=== PATIENT | female | born 1990 | race Caucasian/White ===

== ENCOUNTER 2017-04-29 10:09 | Outpatient (CLI) | payer OTHER | END 2017-04-29 11:50 | disposition home or self-care (01) | LOC: OBT 10:09 → L-D 10:09 → OBT 11:50 | DX: O48.0 Post-term pregnancy (principal); Z3A.40 40 weeks gestation of pregnancy | CPT/HCPCS: 76818 ==

== ENCOUNTER 2017-05-01 11:27 | Inpatient (IN) | payer OTHER ==
[2017-05-01] MEDS: LACTATED RINGER'S 1,000 ML IV ×2 (13:12→17:54)
[2017-05-01 13:23] LABS: ADD MAN DIFF? NO
[2017-05-01 13:25] LABS: BASOPHIL # 0.1 10^3/ul (0.0-0.1); BASOPHILS % 0.6 % (0.0-2.0); EOSINOPHILS % 0.2 % (0.0-7.0); HEMATOCRIT 38.5 % (37.0-47.0); HEMOGLOBIN 12.8 g/dl (12.0-16.0); LYMPHOCYTES # 2.5 10^3/ul (0.8-2.9); LYMPHOCYTES % 28.4 % (15.0-51.0); MEAN CORPUSCULAR HEMOGLOBIN 28.2 pg (29.0-33.0); MEAN CORPUSCULAR HGB CONC 33.2 g/dl (32.0-37.0); MEAN CORPUSCULAR VOLUME 84.8 fl (82.0-101.0); MEAN PLATELET VOLUME 12.8 fl (7.4-10.4); MONOCYTE # 0.8 10^3/ul (0.3-0.9); MONOCYTES % 9.1 % (0.0-11.0); NEUTROPHIL # 5.4 10^3/ul (1.6-7.5); NEUTROPHILS % 61.4 % (39.0-77.0); PLATELET COUNT 176 10^3/UL (140-415); RED BLOOD COUNT 4.54 10^6/ul (4.20-5.40); RED CELL DISTRIBUTION WIDTH 14.3 % (11.5-14.5)
[2017-05-01 13:25] LABS: WHITE BLOOD COUNT 8.8 10^3/ul (4.8-10.8)
[2017-05-01] MEDS: DINOPROSTONE 10 MG VAG SUPP VAG (13:25)
[2017-05-01 13:29] LABS: INR 0.87; PROTIME 11.9 Sec (11.9-14.9); PT RATIO 0.9
[2017-05-01 13:30] LABS: PARTIAL THROMBOPLASTIN TIME 26.4 Sec (25.0-35.0)
[2017-05-01] MEDS ORDERED: MISOPROSTOL 200 MCG TAB PR (13:30)
[2017-05-01] MEDS ORDERED: IBUPROFEN 600 MG TAB PO (13:30)
[2017-05-01] MEDS ORDERED: METHYLERGONOVINE 0.2 MG INJ IM (13:30)
[2017-05-01] MEDS ORDERED: OXYTOCIN 30 UNITS/LR 500 ML IV ×2 (13:30)
[2017-05-01] MEDS ORDERED: MINERAL OIL LIGHT 10 ML VIAL TOP (13:30)
[2017-05-01] MEDS ORDERED: CARBOPROST 250 MCG INJ IM (13:30)
[2017-05-01] MEDS ORDERED: BUTORPHANOL 2 MG INJ IV (13:30)
[2017-05-01] MEDS ORDERED: LIDOCAINE 1% (MPF) 30 ML INJ INJ (13:30)
[2017-05-01 14:19] LABS: HEPATITIS B SURFACE ANTIGEN NEGATIVE (NEGATIVE)
[2017-05-01 16:53] LABS: RAPID PLASMA REAGIN NONREACTIVE (NR)
[2017-05-02 01:08] LABS: AMPHETAMINE/METHAMPHETAMINE Negative (NEGATIVE); BARBITURATES Negative (NEGATIVE); BENZODIAZEPINES Negative (NEGATIVE); CANNABINOIDS Negative (NEGATIVE); COCAINE Negative (NEGATIVE); OPIATES Negative (NEGATIVE)
[2017-05-02] MEDS: LACTATED RINGER'S 1,000 ML IV ×3 (01:38→18:05)
[2017-05-02] MEDS: DINOPROSTONE 10 MG VAG SUPP VAG (15:28)
[2017-05-03] MEDS: LACTATED RINGER'S 1,000 ML IV ×4 (02:14→20:10)
[2017-05-03] MEDS ORDERED: EPHEDrine SULFATE 50 MG/5 ML SYG IV (09:00)
[2017-05-03] MEDS ORDERED: NALOXONE (0.4 MG/ML) INJ IV (09:00)
[2017-05-03] MEDS ORDERED: DIPHENHYDRAMINE 50 MG INJ IV (09:00)
[2017-05-03] MEDS ORDERED: ONDANSETRON 4 MG INJ IV (09:00)
[2017-05-03] MEDS: OXYTOCIN 30 UNITS/LR 500 ML IV (10:49)
[2017-05-03] MEDS: AMPICILLIN 2 GM/NS (PMX) 100 ML IVPB (20:29)
[2017-05-03 20:30] LABS: ADD MAN DIFF? NO
[2017-05-03] MEDS: ACETAMINOPHEN 500 MG TAB PO (20:30)
[2017-05-03 20:34] LABS: WHITE BLOOD COUNT 14.4 10^3/ul (4.8-10.8)
[2017-05-03 20:34] LABS: BASOPHILS % 0.3 % (0.0-2.0); EOSINOPHILS % 0.1 % (0.0-7.0); HEMATOCRIT 37.3 % (37.0-47.0); HEMOGLOBIN 12.2 g/dl (12.0-16.0); MEAN CORPUSCULAR HGB CONC 32.7 g/dl (32.0-37.0); MEAN CORPUSCULAR VOLUME 85.7 fl (82.0-101.0); MEAN PLATELET VOLUME 12.5 fl (7.4-10.4); MONOCYTES % 7.2 % (0.0-11.0); NEUTROPHIL # 11.3 10^3/ul (1.6-7.5); PLATELET COUNT 153 10^3/UL (140-415); RED BLOOD COUNT 4.35 10^6/ul (4.20-5.40); RED CELL DISTRIBUTION WIDTH 14.6 % (11.5-14.5)
[2017-05-03 20:45] LABS: ADD UMIC YES; UR ASCORBIC ACID NEGATIVE (NEGATIVE); UR BILIRUBIN (Dip) NEGATIVE (NEGATIVE); UR BLOOD (Dip) 3+ mg/dL (NEGATIVE); UR CLARITY CLEAR (CLEAR); UR COLOR YELLOW (YELLOW); UR GLUCOSE (Dip) NEGATIVE (NEGATIVE); UR KETONES (Dip) TRACE mg/dL (NEGATIVE); UR LEUKOCYTE ESTERASE (Dip) NEGATIVE Leu/ul (NEGATIVE); UR NITRITE (Dip) NEGATIVE (NEGATIVE); UR RBC 4 /HPF (0-5); UR SPECIFIC GRAVITY (Dip) 1.005 (1.003-1.030); UR TOTAL PROTEIN (Dip) NEGATIVE (NEGATIVE); UR UROBILINOGEN (Dip) NEGATIVE (NEGATIVE); UR WBC 2 /HPF (0-5)
[2017-05-03] MEDS: FENTAnyl 2MCG/ML-ROPIV 0.2% 100 ML BAG EPI (20:49)
[2017-05-03 21:04] LABS: PROTIME 12.2 Sec (11.9-14.9)
[2017-05-03 21:05] LABS: ALANINE AMINOTRANSFERASE 31 IU/L (13-69); ALBUMIN 3.4 g/dl (3.3-4.9); ALBUMIN/GLOBULIN RATIO 1.13; ALKALINE PHOSPHATASE 151 IU/L (42-121); ANION GAP 16 (8-16); ASPARTATE AMINO TRANSFERASE 21 IU/L (15-46); BILIRUBIN,INDIRECT 0.3 mg/dl (0-1.1); BILIRUBIN,TOTAL 0.3 mg/dl (0.2-1.3); BLOOD UREA NITROGEN 6 mg/dl (7-20); CALCIUM 8.5 mg/dl (8.4-10.2); CARBON DIOXIDE 21 mmol/L (21-31); CHLORIDE 107 mmol/L (97-110); CREATININE 0.76 mg/dl (0.44-1.00); GLUCOSE 70 mg/dl (70-220); PARTIAL THROMBOPLASTIN TIME 28.4 Sec (25.0-35.0); POTASSIUM 3.8 mmol/L (3.5-5.1); SODIUM 140 mmol/L (135-144); TOTAL PROTEIN 6.4 g/dl (6.1-8.1); URIC ACID 5.5 mg/dl (3.1-7.9)
[2017-05-03 22:56] LABS: FIBRIN SPLIT PRODUCT <10 ug/ml (<10)
[2017-05-04] MEDS: AMPICILLIN 1 GM/NS (PMX) 50 ML IVPB ×3 (00:31→08:13)
[2017-05-04] MEDS: LACTATED RINGER'S 1,000 ML IV ×4 (02:31→21:08)
[2017-05-04] MEDS: FENTAnyl 2MCG/ML-ROPIV 0.2% 100 ML BAG EPI (06:24)
[2017-05-04] MEDS: ONDANSETRON 4 MG INJ IV (09:03)
[2017-05-04] MEDS: CITRIC ACID/SODIUM CITRATE 15 ML CUP PO (09:03)
[2017-05-04] MEDS ORDERED: OXYTOCIN 10 UNIT INJ (09:36)
[2017-05-04] MEDS ORDERED: FENTAnyl 50 MCG/ML VIAL ×4 (09:36→10:25)
[2017-05-04] MEDS ORDERED: METOCLOPRAMIDE 10 MG INJ (09:36)
[2017-05-04] MEDS ORDERED: PHENYLephrine (100 MCG/ML) 5ML SYG (09:36)
[2017-05-04] MEDS ORDERED: morphine SULFATE/PF (10 MG/10 ML) INJ (09:36)
[2017-05-04] MEDS: CEFAZOLIN 2 GM/50 ML (PMX) 50 ML IVPB ×2 (09:41→18:15)
[2017-05-04] MEDS ORDERED: KETOROLAC 30 MG INJ (10:09)
[2017-05-04] MEDS ORDERED: ONDANSETRON 4 MG INJ IV ×2 (11:00)
[2017-05-04] MEDS ORDERED: MEPERIDINE 25 MG INJ IV (11:00)
[2017-05-04] MEDS ORDERED: morphine 2 MG INJ IV (11:00)
[2017-05-04] MEDS ORDERED: hydrALAzine 20 MG INJ IV (11:00)
[2017-05-04] MEDS ORDERED: NALOXONE (0.4 MG/ML) INJ IV (11:00)
[2017-05-04] MEDS ORDERED: DIPHENHYDRAMINE 50 MG INJ IV ×3 (11:00→14:00)
[2017-05-04] MEDS ORDERED: TRIMETHOBENZAMIDE 100 MG/ML VIAL IM ×2 (11:00)
[2017-05-04] MEDS ORDERED: OXYCODONE/ACETAMINOPHEN (5/325) TAB PO ×2 (11:00)
[2017-05-04] MEDS ORDERED: HYDROmorphONE (0.2 MG/ML) 10ML SYG IV ×3 (11:00)
[2017-05-04] MEDS ORDERED: NALBUPHINE HCL (10 MG/1 ML) INJ IV (11:00)
[2017-05-04] MEDS ORDERED: IPRATROPIUM (NEB) 0.5 MG/2.5 ML AMP HHN (11:00)
[2017-05-04] MEDS ORDERED: ALBUTEROL 0.083% (NEB) 2.5 MG/3 ML AMP HHN (11:00)
[2017-05-04] MEDS ORDERED: FENTAnyl 50 MCG/ML VIAL IV ×3 (11:00)
[2017-05-04] MEDS ORDERED: EPHEDrine SULFATE 50 MG/5 ML SYG IV (11:00)
[2017-05-04] MEDS ORDERED: LABETALOL HCL 20MG INJ IV (11:00)
[2017-05-04] MEDS ORDERED: morphine 4 MG/ML VIAL IV (11:00)
[2017-05-04] MEDS: OXYTOCIN 30 UNITS/LR 500 ML IV (11:26)
[2017-05-04] MEDS ORDERED: MISOPROSTOL 200 MCG TAB PR (14:00)
[2017-05-04] MEDS ORDERED: LANOLIN 7 GM TUBE TOP (14:00)
[2017-05-04] MEDS ORDERED: OXYTOCIN 30 UNITS/LR 500 ML IV (14:00)
[2017-05-04] MEDS ORDERED: ZOLPIDEM 5 MG TAB PO (14:00)
[2017-05-04] MEDS ORDERED: METHYLERGONOVINE 0.2 MG INJ IM (14:00)
[2017-05-04] MEDS ORDERED: CARBOPROST 250 MCG INJ IM (14:00)
[2017-05-04 14:29] LABS: ADD MAN DIFF? NO
[2017-05-04 14:31] LABS: WHITE BLOOD COUNT 17.4 10^3/ul (4.8-10.8)
[2017-05-04 14:31] LABS: BASOPHIL # 0.1 10^3/ul (0.0-0.1); BASOPHILS % 0.3 % (0.0-2.0); HEMATOCRIT 32.8 % (37.0-47.0); LYMPHOCYTES # 1.5 10^3/ul (0.8-2.9); LYMPHOCYTES % 8.6 % (15.0-51.0); MEAN CORPUSCULAR HEMOGLOBIN 28.6 pg (29.0-33.0); MEAN CORPUSCULAR HGB CONC 33.5 g/dl (32.0-37.0); MEAN CORPUSCULAR VOLUME 85.2 fl (82.0-101.0); MEAN PLATELET VOLUME 12.6 fl (7.4-10.4); MONOCYTE # 0.8 10^3/ul (0.3-0.9); MONOCYTES % 4.8 % (0.0-11.0); NEUTROPHIL # 14.9 10^3/ul (1.6-7.5); NEUTROPHILS % 85.8 % (39.0-77.0); PLATELET COUNT 147 10^3/UL (140-415); RED BLOOD COUNT 3.85 10^6/ul (4.20-5.40); RED CELL DISTRIBUTION WIDTH 14.8 % (11.5-14.5)
[2017-05-04] MEDS: KETOROLAC 30 MG INJ IV (14:56)
[2017-05-04] MEDS: SENNA/DOCUSATE NA (8.6MG/50MG) TAB PO (21:08)
[2017-05-04] MEDS ORDERED: LACTATED RINGER'S 500 ML IV ×2 (22:02→22:06)
[2017-05-04] MEDS: IOHEXOL 100 ML (22:41)
[2017-05-04 23:18] LABS: B-TYPE NATRIURETIC PEPTIDE 1280 PG/ML (0-125)
[2017-05-05] MEDS: SOD CHLORIDE 0.9% 100 ML (00:30)
[2017-05-05] MEDS: FUROSEMIDE 40 MG INJ IV (01:34)
[2017-05-05] MEDS: CEFAZOLIN 2 GM/50 ML (PMX) 50 ML IVPB (02:15)
[2017-05-05 02:46] LABS: AADO2 Arterial 188.8 mmHg (7.0-24.0); Allen Test ACCEPTAB; Arterial Base Excess 1.3 mmol/L (-3.0-3); Arterial Blood Gas Oxygen Sat 89.7 mmHG (95.0-98.0); Arterial COHb 0.3 % (0.0-3.0); Arterial MetHb 0.5 % (0.0-1.5); Arterial Total Hemglobin 11.1 g/dl (12.0-18.0); Arterial pCO2 31.6 mmhg (35-45); MODE NASAL CANNULA; Site Right Radial
[2017-05-05 06:02] LABS: ADD MAN DIFF? NO
[2017-05-05 06:15] LABS: BASOPHIL # 0.1 10^3/ul (0.0-0.1); BASOPHILS % 0.3 % (0.0-2.0); EOSINOPHILS % 0.1 % (0.0-7.0); HEMATOCRIT 32.1 % (37.0-47.0); HEMOGLOBIN 10.8 g/dl (12.0-16.0); LYMPHOCYTES # 1.8 10^3/ul (0.8-2.9); LYMPHOCYTES % 10.9 % (15.0-51.0); MEAN CORPUSCULAR HEMOGLOBIN 28.4 pg (29.0-33.0); MEAN CORPUSCULAR HGB CONC 33.6 g/dl (32.0-37.0); MEAN CORPUSCULAR VOLUME 84.5 fl (82.0-101.0); MEAN PLATELET VOLUME 12.4 fl (7.4-10.4); MONOCYTE # 0.9 10^3/ul (0.3-0.9); MONOCYTES % 5.3 % (0.0-11.0); NEUTROPHIL # 13.4 10^3/ul (1.6-7.5); PLATELET COUNT 162 10^3/UL (140-415); RED CELL DISTRIBUTION WIDTH 14.8 % (11.5-14.5)
[2017-05-05 06:15] LABS: WHITE BLOOD COUNT 16.2 10^3/ul (4.8-10.8)
[2017-05-05 06:36] LABS: ALANINE AMINOTRANSFERASE 24 IU/L (13-69); ALBUMIN 2.8 g/dl (3.3-4.9); ALBUMIN/GLOBULIN RATIO 0.93; ALKALINE PHOSPHATASE 121 IU/L (42-121); ANION GAP 12 (8-16); ASPARTATE AMINO TRANSFERASE 26 IU/L (15-46); BILIRUBIN,INDIRECT 0.1 mg/dl (0-1.1); BILIRUBIN,TOTAL 0.1 mg/dl (0.2-1.3); BLOOD UREA NITROGEN 6 mg/dl (7-20); CALCIUM 8.2 mg/dl (8.4-10.2); CARBON DIOXIDE 27 mmol/L (21-31); CHLORIDE 103 mmol/L (97-110); CREATININE 0.83 mg/dl (0.44-1.00); GLUCOSE 69 mg/dl (70-220); MAGNESIUM 1.3 mg/dl (1.7-2.5); POTASSIUM 3.1 mmol/L (3.5-5.1); SODIUM 139 mmol/L (135-144); TOTAL PROTEIN 5.8 g/dl (6.1-8.1)
[2017-05-05] MEDS: PIPER-TAZO 3.375 GM IV (PMX) 100 ML IVPB ×2 (06:45→12:54)
[2017-05-05] MEDS: SENNA/DOCUSATE NA (8.6MG/50MG) TAB PO ×2 (09:03→21:17)
[2017-05-05] MEDS: POTASSIUM CHLORIDE (SR) 20 MEQ TAB PO ×2 (09:04→12:54)
[2017-05-05] MEDS ORDERED: ONDANSETRON 4 MG INJ IV (09:35)
[2017-05-05] MEDS: MAGNESIUM OXIDE 400 MG TAB PO (09:42)
[2017-05-05] MEDS: IBUPROFEN 600 MG TAB PO ×3 (12:54→23:57)
[2017-05-05] MEDS: MAGNESIUM SULFATE 2 GM/50 ML 50 ML IVPB (15:01)
[2017-05-05] MEDS: FUROSEMIDE 20 MG TAB PO (15:01)
[2017-05-05] MEDS: OXYCODONE/ACETAMINOPHEN (5/325) TAB PO (20:58)
[2017-05-06] MEDS: PIPER-TAZO 3.375 GM IV (PMX) 100 ML IVPB ×3 (00:06→05:28)
[2017-05-06] MEDS: OXYCODONE/ACETAMINOPHEN (5/325) TAB PO ×4 (05:28→21:01)
[2017-05-06] MEDS: IBUPROFEN 600 MG TAB PO ×3 (05:28→17:57)
[2017-05-06 07:35] LABS: ADD MAN DIFF? NO
[2017-05-06 07:50] LABS: WHITE BLOOD COUNT 13.1 10^3/ul (4.8-10.8)
[2017-05-06 07:50] LABS: BASOPHIL # 0.1 10^3/ul (0.0-0.1); BASOPHILS % 0.4 % (0.0-2.0); EOSINOPHILS # 0.2 10^3/ul (0.0-0.5); EOSINOPHILS % 1.4 % (0.0-7.0); HEMATOCRIT 32.5 % (37.0-47.0); HEMOGLOBIN 10.8 g/dl (12.0-16.0); LYMPHOCYTES % 15.6 % (15.0-51.0); MEAN CORPUSCULAR HEMOGLOBIN 28.6 pg (29.0-33.0); MEAN CORPUSCULAR HGB CONC 33.2 g/dl (32.0-37.0); MEAN CORPUSCULAR VOLUME 86.2 fl (82.0-101.0); MEAN PLATELET VOLUME 12.2 fl (7.4-10.4); MONOCYTE # 0.8 10^3/ul (0.3-0.9); MONOCYTES % 6.1 % (0.0-11.0); NEUTROPHIL # 9.9 10^3/ul (1.6-7.5); PLATELET COUNT 172 10^3/UL (140-415); RED BLOOD COUNT 3.77 10^6/ul (4.20-5.40)
[2017-05-06 08:05] LABS: ALANINE AMINOTRANSFERASE 26 IU/L (13-69); ALBUMIN 2.5 g/dl (3.3-4.9); ALBUMIN/GLOBULIN RATIO 0.92; ALKALINE PHOSPHATASE 121 IU/L (42-121); ANION GAP 8 (8-16); ASPARTATE AMINO TRANSFERASE 20 IU/L (15-46); BLOOD UREA NITROGEN 8 mg/dl (7-20); CARBON DIOXIDE 29 mmol/L (21-31); CHLORIDE 102 mmol/L (97-110); CREATININE 0.75 mg/dl (0.44-1.00); GLUCOSE 77 mg/dl (70-220); POTASSIUM 3.9 mmol/L (3.5-5.1); SODIUM 135 mmol/L (135-144); TOTAL PROTEIN 5.2 g/dl (6.1-8.1)
[2017-05-06 08:07] LABS: MAGNESIUM 1.7 mg/dl (1.7-2.5)
[2017-05-06 08:07] LABS: PHOSPHORUS 4.1 mg/dl (2.5-4.9)
[2017-05-06] MEDS: SENNA/DOCUSATE NA (8.6MG/50MG) TAB PO ×2 (09:03→21:01)
[2017-05-06] MEDS: POTASSIUM CHLORIDE (SR) 20 MEQ TAB PO (18:12)
[2017-05-06] MEDS: MAGNESIUM OXIDE 400 MG TAB PO (18:13)
[2017-05-06] MEDS ORDERED: MAGNESIUM SULFATE 2 GM/50 ML 50 ML IVPB (18:30)
[2017-05-07] MEDS: IBUPROFEN 600 MG TAB PO ×4 (05:31→17:23)
[2017-05-07] MEDS: DIPHTH/TET/ACEL PERTUSS (ADULT) 0.5 ML VIAL IM* (09:00)
[2017-05-07] MEDS: MAGNESIUM OXIDE 400 MG TAB PO (10:29)
[2017-05-07] MEDS: SENNA/DOCUSATE NA (8.6MG/50MG) TAB PO (10:29)
[2017-05-07] MEDS: OXYCODONE/ACETAMINOPHEN (5/325) TAB PO (17:29)
== END 2017-05-07 18:30 | disposition home or self-care (01) | DRG 765 ==
LOC: OBT 11:27 → L-D 05-04 09:10 → ICU 05-05 00:04 → L-D 11:27 → PP1 05-04 13:30 → OBT 12:40 → L-D 12:30
PROVIDERS: Obstetrics & Gynecology
PROC: 3E0P7VZ Introduction of Hormone into Female Reproductive, Via Natural or Artificial Opening (ICD-10-PCS; 2017-05-01)
PROC: 10D00Z1 Extraction of Products of Conception, Low, Open Approach (ICD-10-PCS; principal; 2017-05-04)
DX: O62.0 Primary inadequate contractions (principal); J96.01 Acute respiratory failure with hypoxia; O85 Puerperal sepsis; I50.31 Acute diastolic (congestive) heart failure; O99.43 Diseases of the circulatory system complicating the puerperium; O99.53 Diseases of the respiratory system complicating the puerperium; E83.42 Hypomagnesemia; O76 Abnormality in fetal heart rate and rhythm complicating labor and delivery; E87.6 Hypokalemia; O90.89 Other complications of the puerperium, not elsewhere classified; O32.4XX0 Maternal care for high head at term, not applicable or unspecified; O75.4 Other complications of obstetric surgery and procedures; Z37.0 Single live birth; Z3A.40 40 weeks gestation of pregnancy
CPT/HCPCS: 36600; 62319; 71045; 71275; 76818; 80053; 80307; 81001; 82803; 83735; 83880; 84100; 84560; 85025; 85362; 85384; 85610; 85730; 86592; 86900; 86901; 87040; 87086; 87340; 90715; 93005; 93306; 99464